=== PATIENT | female | born 1970 | race Two or more races ===

== ENCOUNTER 2024-01-30 12:28 | Emergency (ER) | payer OTHER, BC ==
[~2024-01-30] VITALS: Ht 165.1 cm; Wt 61.2 kg
[2024-01-30] MEDS ORDERED: HORIZANT300 MG PO (12:49)
[2024-01-30] MEDS ORDERED: NASAL MIST126 ML (12:50)
[2024-01-30] MEDS ORDERED: FAMOTIDINE/PF 20 MG/2 ML VIAL ONE (13:43)
[2024-01-30] MEDS ORDERED: METHYLPREDNISOLONE SOD SUCC 40 MG VIAL ONE (13:44)
[2024-01-30] MEDS ORDERED: FAMOTIDINE/PF 20 MG/2 ML VIAL IV PUSH ONE (13:45)
[2024-01-30] MEDS ORDERED: METHYLPREDNISOLONE SOD SUCC 125 MG VIAL IV ONE (13:45)
== END 2024-01-30 16:14 | disposition home or self-care (01) ==
LOC: ER 12:29
DX: T78.3XXA Angioneurotic edema, initial encounter (principal); X58.XXXA Exposure to other specified factors, initial encounter; Z88.0 Allergy status to penicillin; Z88.8 Allergy status to other drugs, medicaments and biological substances
CPT/HCPCS: 96365; 99283; J3490

== ENCOUNTER 2024-02-03 10:18 | Emergency (ER) | payer OTHER, BC ==
[~2024-02-03] VITALS: Ht 165.1 cm; Wt 61.2 kg
[~2024-02-03 10:18] MED LIST: HORIZANT300 MG PO; NASAL MIST126 ML
[2024-02-03] MEDS ORDERED: METHYLPREDNISOLONE SOD SUCC 125 MG VIAL ONE (10:35)
[2024-02-03] MEDS ORDERED: DIPHENHYDRAMINE HCL 50 MG/ML VIAL 1ML ONE (10:35)
[2024-02-03] MEDS ORDERED: WATER FOR INJ.,BACTERIOSTATIC 30 ML VIAL IJ ONE (10:35)
[2024-02-03] MEDS ORDERED: METHYLPREDNISOLONE SOD SUCC 125 MG VIAL IV ONE (11:00)
[2024-02-03] MEDS ORDERED: DIPHENHYDRAMINE HCL 50 MG/ML VIAL 1ML IV ONE (11:00)
== END 2024-02-03 13:43 | disposition home or self-care (01) ==
LOC: ER 10:20
DX: T78.49XA Other allergy, initial encounter (principal); X58.XXXA Exposure to other specified factors, initial encounter; Z88.0 Allergy status to penicillin; Z88.8 Allergy status to other drugs, medicaments and biological substances
CPT/HCPCS: 96365; 99282; J1200